=== PATIENT | male | born 1965 | race Caucasian/White ===

== ENCOUNTER 2024-10-17 11:07 | Outpatient (CLI) | payer BC, SELFPAY ==
--- NOTE | ~2024-10-17 | XR_ITS ---
EXAM: XR lumbar spine 6V w bending DATE: 10/17/2024 11:49 HISTORY: Lbp . COMPARISON: None available. FINDINGS: 5 nonrib-bearing lumbar-type vertebral bodies. Pedicles intact. 2 mm retrolisthesis at L2- 3 that worsens slightly in extension. 2 mm retrolisthesis at L3-4 that reduces slightly in flexion. M ild loss of vertebral body height at T10 through T12. Mild multilevel disc space narrowing and modera te marginal osteophytosis. Moderate mid and lower lumbar facet hypertrophy and sclerosis with intersp inous narrowing. No fracture or dislocation. Possible bilateral pars defects at L5. IMPRESSION: Mild compression deformities at T10 through T12, correlate with history of trauma and shashank n/tenderness. Multilevel moderate degenerative disc disease and facet arthropathy. Mild dynamic listh eses at L2-3 and L3-4. Possible L5 pars defects, this could be confirmed with oblique radiographs of the lumbar spine or lumbar spine CT. Reviewed, dictated and finalized at location K. [facility] COORDINATOR IMPRESSION: Mild compression deformities at T10 through T12, correlate with his tory of trauma and pain/tenderness. Multilevel moderate degenerative disc disea se and facet arthropathy. Mild dynamic listheses at L2-3 and L3-4. Possible L5 pars defects, this could be confirmed with oblique radiographs of the lumbar sp ine or lumbar spine CT.
== END 2024-10-17 11:08 | disposition home or self-care (01) ==
DX: M51.369 Other intervertebral disc degeneration, lumbar region without mention of lumbar back pain or lower extremity pain (principal)
CPT/HCPCS: 72114